=== PATIENT | female | born 1960 | race American Indian/Alaskan Native ===

== ENCOUNTER 2022-11-23 05:31 | Inpatient (IN) ==
[~2022-11-23 05:31] MED LIST: Acetaminophen IV 1 GM/100ML 1,000 MG/100 ML BAG IV ONE; Dexamethasone IV 4 MG/ML VIAL 1 ml VIAL ONE; Metoclopramide 5 MG/ML VIAL (10 mg) ONE; Morphine 10 MG/ML VIAL (1 ml) ONE; Ondansetron 4 mg VIAL 2 MG/ML 2 ml VIAL ONE; Propofol 10 MG/ML 20 ML BTL ONE; Rocuronium 50 mg VIAL 10 mg/ml 5 ml VIAL (50 mg) ONE; fentaNYL 250 mcg/5 ml 50 MCG/ML 5 ml VIAL (250 MCG) ONE
[2022-11-23] MEDS ORDERED: Buffered Lidocaine 1% SYRIN 1 ml INTRADERM ONE (06:00)
[2022-11-23] MEDS ORDERED: Clindamycin 300 MG/D5W BAG 300 MG/50 ML BAG IV ONE ×2 (06:00→06:01)
[2022-11-23] MEDS ORDERED: Clindamycin 600 MG/NS BAG IV ONE (06:00)
[2022-11-23] MEDS ORDERED: Lactated Ringers 1000 ml BAG 1,000 ML IV SCH (06:00)
[2022-11-23] MEDS ORDERED: Heparin 5000 UNITS/ML 1 mL VIAL ONE (06:01)
[2022-11-23] MEDS ORDERED: Clindamycin 600 MG/NS BAG(*) 600 MG/50 ML BAG ONE (06:01)
[2022-11-23] MEDS ORDERED: Scopolamine 1 mg/72hr PATCH ONE (06:01)
[2022-11-23 06:46] LABS: Rapid COVID-19 Molecular Undetected (Undetected)
[2022-11-23] MEDS ORDERED: Bupivacaine 0.25% SDV 30 ML ONE (07:06)
[2022-11-23] MEDS ORDERED: Prochlorperazine 5 mg/ml 2 ml VIAL (10 mg) IV PRN (08:36)
[2022-11-23] MEDS ORDERED: Naloxone 0.4 mg VIAL 0.4 mg/ml 1 ml VIAL IV PRN (08:36)
[2022-11-23] MEDS ORDERED: fentaNYL 100 mcg/2 ml 50 MCG/ML VIAL IV PRN (08:36)
[2022-11-23] MEDS ORDERED: Morphine 4 MG/ML VIAL (1 ml) IV PRN (08:36)
[2022-11-23] MEDS ORDERED: Phenylephrine 40 mcg/mL 10mL (400mcg) SYRINGE ONE ×2 (08:57→09:55)
[2022-11-23] MEDS ORDERED: HYDROmorphone 1 MG/1 ML SYRINGE IV SLOW PU PRN (10:19)
[2022-11-23] MEDS ORDERED: Ondansetron 4 mg VIAL 2 MG/ML 2 ml VIAL IV PRN (10:19)
[2022-11-23] MEDS ORDERED: Dextrose 50% Syringe 50 ml 25 GM/50 ML SYRINGE IV PUSH PRN (10:31)
[2022-11-23] MEDS: Lactated Ringers 1000 ml BAG 1,000 ML IV SCH ×2 (12:34→19:43)
[2022-11-23] MEDS: Acetaminophen IV 1 GM/100ML 1,000 MG/100 ML BAG IV SCH ×3 (16:00→23:33)
[2022-11-23] MEDS: Fluorometholone 0.1% OPTH.SUS 5 ML BTL BOTH EYES SCH ×2 (16:01→20:06)
[2022-11-23] MEDS: Heparin 5000 UNITS/ML 1 mL VIAL SUBCUT SCH ×2 (16:15→20:58)
[2022-11-23] MEDS: LIFITEGRAST BOTH EYES SCH (21:46)
[2022-11-24] MEDS: Fluorometholone 0.1% OPTH.SUS 5 ML BTL BOTH EYES SCH ×4 (00:07→17:25)
[2022-11-24] MEDS: Lactated Ringers 1000 ml BAG 1,000 ML IV SCH (02:43)
[2022-11-24] MEDS: Acetaminophen IV 1 GM/100ML 1,000 MG/100 ML BAG IV SCH ×3 (05:47→17:23)
[2022-11-24] MEDS: Heparin 5000 UNITS/ML 1 mL VIAL SUBCUT SCH ×3 (05:48→22:01)
[2022-11-24 06:28] LABS: Hematocrit 36.8 % (35-45); Hemoglobin 12.3 g/dL (11.5-14.3); Mean Platelet Volume 9.4 fL (7.5-11.2); Platelet Count 249 10^3/uL (150-450)
[2022-11-24 06:48] LABS: Creatinine, Serum 0.51 mg/dL (0.51-0.95); eGFR CKD-EPI 104.2 (>60)
[2022-11-24] MEDS: LIFITEGRAST BOTH EYES SCH ×2 (08:42→22:00)
[2022-11-24] MEDS: D5W 1/2 NS KCl 20 meq 1000 ml 1,000 ML IV SCH ×2 (11:44→22:08)
[2022-11-24] MEDS: Isosorbide Mononit ER 30mg TAB PO SCH (11:44)
[2022-11-24] MEDS ORDERED: Prochlorperazine 5 mg/ml 2 ml VIAL (10 mg) IV PRN (13:34)
[2022-11-24] MEDS: HYDROmorphone 0.5 MG/0.5 ML SYRINGE IV SLOW PU PRN (22:12)
[2022-11-25] MEDS: Fluorometholone 0.1% OPTH.SUS 5 ML BTL BOTH EYES SCH ×2 (01:31→05:45)
[2022-11-25] MEDS: Acetaminophen IV 1 GM/100ML 1,000 MG/100 ML BAG IV SCH ×2 (01:31→07:18)
[2022-11-25] MEDS: Heparin 5000 UNITS/ML 1 mL VIAL SUBCUT SCH (05:46)
[2022-11-25] MEDS: HYDROmorphone 0.5 MG/0.5 ML SYRINGE IV SLOW PU PRN (05:50)
[2022-11-25] MEDS: D5W 1/2 NS KCl 20 meq 1000 ml 1,000 ML IV SCH (09:12)
[2022-11-25] MEDS: LIFITEGRAST BOTH EYES SCH (09:14)
[2022-11-25] MEDS: Isosorbide Mononit ER 30mg TAB PO SCH (09:15)
[2022-11-25 09:56] VITALS: BP 117/77
== END 2022-11-25 13:00 | disposition home or self-care (01) | DRG 403 ==
LOC: OR 05:31 → SSU 10:19
PROVIDERS: ADMIT Surgery; ATTEND Surgery